=== PATIENT | male | born 1955 | race Caucasian/White ===

== ENCOUNTER 2022-09-18 01:40 | Emergency (ER) | payer OTHER ==
[~2022-09-18] VITALS: Ht 172.7 cm; Wt 77.1 kg
[2022-09-18 01:40] VITALS: BP 150/110; PULSE 112; RESP 17; TEMP 97.8; O2SAT 98
--- NOTE | 2022-09-18 01:45 | NUR ---
PT BROUGHT TO BED 11 VIA [facility]
--- NOTE | 2022-09-18 01:45 | NUR ---
DR. PUGH IS EXAMING THE PATIENT
[2022-09-18 01:57] VITALS: TEMP 98
[2022-09-18] MEDS ORDERED: MORPHINE SULFATE 4 MG/ML SYR IM ONE (02:25)
[2022-09-18] MEDS ORDERED: COLCHICINE 0.6 MG TAB PO ONE (02:25)
[2022-09-18] MEDS ORDERED: FEBU80TA PO (05:11)
[2022-09-18] MEDS ORDERED: COLC-30 PO ×2 (05:11→07:33)
[2022-09-18] MEDS ORDERED: ALLO300T28 PO ×2 (05:11→07:33)
[2022-09-18] MEDS ORDERED: NAPR-54 PO ×2 (05:11→07:33)
[2022-09-18] MEDS ORDERED: FEBU40TA PO (07:33)
[2022-09-18 08:15] VITALS: BP 112/65; PULSE 74; RESP 17; O2SAT 98
--- NOTE | 2022-09-18 08:16 | NUR ---
Patient discharged with v/s stable. Written and verbal after care instructions given and explained. Patient verbalized understanding. Ambulatory with steady gait. All questions addressed prior to discharge. Advised to follow up with PMD.
== END 2022-09-18 08:16 | disposition home or self-care (01) ==
LOC: MED 01:40
DX: M10.041 Idiopathic gout, right hand (principal); I10 Essential (primary) hypertension; Z79.899 Other long term (current) drug therapy; Z98.890 Other specified postprocedural states
CPT/HCPCS: 96374; 99283; J2270; 96372